=== PATIENT | female | born 1965 | race Caucasian/White ===

== ENCOUNTER 2017-01-10 14:05 | Emergency (ER) | payer OTHER ==
[2017-01-10 15:26] VITALS: BP 118/72
== END 2017-01-10 15:26 | disposition home or self-care (01) ==
LOC: ED 14:05
DX: N39.0 Urinary tract infection, site not specified (principal); F31.9 Bipolar disorder, unspecified; F20.9 Schizophrenia, unspecified; M19.90 Unspecified osteoarthritis, unspecified site
CPT/HCPCS: Q0162

== ENCOUNTER 2017-01-18 13:13 | Emergency (ER) | payer OTHER ==
[~2017-01-18] VITALS: Ht 152.4 cm; Wt 44.5 kg
[2017-01-18 15:10] VITALS: BP 136/86
== END 2017-01-18 15:43 | disposition home or self-care (01) ==
LOC: ED 13:13
DX: L03.113 Cellulitis of right upper limb (principal)
CPT/HCPCS: 90715

== ENCOUNTER 2017-05-01 15:29 | Inpatient (IN) | payer OTHER ==
[~2017-05-01] VITALS: Ht 142.2 cm; Wt 44.0 kg
[2017-05-01 15:37] VITALS: Ht 142.2 cm; Wt 44.0 kg
[2017-05-01 17:40] LABS: BASOPHIL % 0.5 % (0-2); PLATELET COUNT 326 x10^3mcL (130-400)
[2017-05-01 17:46] LABS: RED CELL DISTRIBUTION WIDTH 14.6 % (11.5-14.5)
[2017-05-01 18:03] LABS: CALCIUM 8.5 mg/dL (8.5-10.1); CARBON DIOXIDE 26.6 mmol/L (21-32); CHLORIDE SERUM 105 mmol/L (98-107); CREATININE SERUM 0.6 mg/dL (0.6-1.0); GFR1 > 60 mL/min; GLUCOSE SERUM 75 mg/dL (74-106); POTASSIUM SERUM 4.1 mmol/L (3.5-5.1); SODIUM SERUM 142 mmol/L (136-145)
[2017-05-01 18:12] LABS: ALBUMIN 3.8 g/dL (3.4-5.0); ALKALINE PHOSPHATASE 63 U/L (46-116); ALT/SGPT 26 U/L (14-59); AST/SGOT 41 U/L (15-37); BILIRUBIN TOTAL 0.4 mg/dL (0.20-1.00); FREE T4 1.21 ng/dL (0.76-1.46); TOTAL PROTEIN, SERUM 7.7 g/dL (6.4-8.2)
[2017-05-01] MEDS ORDERED: NORCO1 TA2 PO (19:13)
[2017-05-01 20:13] VITALS: BP 127/62
[2017-05-01 20:59] LABS: MAGNESIUM 2.1 mg/dL (1.8-2.4); PHOSPHOROUS 3.2 mg/dL (2.5-4.9)
[2017-05-01 21:06] LABS: CHOLESTEROL/HDL RATIO 2.3
[2017-05-01] MEDS ORDERED: GEODON80 MG PO (22:12)
[2017-05-01] MEDS ORDERED: LAM100 PO (22:13)
[2017-05-02 05:36] VITALS: BP 112/59
[2017-05-02 06:52] LABS: CALCIUM 8.7 mg/dL (8.5-10.1); CARBON DIOXIDE 28.2 mmol/L (21-32); CHLORIDE SERUM 109 mmol/L (98-107); CREATININE SERUM 0.5 mg/dL (0.6-1.0); GFR1 > 60 mL/min; GLUCOSE SERUM 68 mg/dL (74-106); PHOSPHOROUS 2.9 mg/dL (2.5-4.9); POTASSIUM SERUM 4.2 mmol/L (3.5-5.1); SODIUM SERUM 144 mmol/L (136-145)
[2017-05-02 06:55] LABS: BASOPHIL % 0.7 % (0-2); PLATELET COUNT 311 x10^3mcL (130-400)
[2017-05-02 06:57] LABS: RED CELL DISTRIBUTION WIDTH 14.6 % (11.5-14.5)
[2017-05-02 09:36] VITALS: BP 144/75
[2017-05-02 12:32] LABS: UA SPECIFIC GRAVITY 1.015 (1.005-1.035); microscopic required? YES; urine erythrocyte TRACE (NEGATIVE)
[2017-05-02] MEDS ORDERED: LAC PO (13:34)
[2017-05-02] MEDS ORDERED: KEFLEX500 M1 PO (13:34)
== END 2017-05-02 15:00 | disposition home or self-care (01) | DRG 48 ==
LOC: ED 15:29 → DU 18:40
PROVIDERS: Emergency Medicine; Family Medicine
DX: G90.8 Other disorders of autonomic nervous system (principal); F50.2 Bulimia nervosa; F41.9 Anxiety disorder, unspecified; F20.9 Schizophrenia, unspecified; F32.9 Major depressive disorder, single episode, unspecified; F31.9 Bipolar disorder, unspecified; M19.90 Unspecified osteoarthritis, unspecified site
CPT/HCPCS: 83880; 84439; J2270; J7030; Q0092

== ENCOUNTER 2018-02-12 17:05 | Emergency (ER) | payer OTHER ==
[~2018-02-12] VITALS: Ht 142.2 cm; Wt 46.7 kg
[~2018-02-12 17:05] MED LIST: GEODON80 MG PO; KEFLEX500 M1 PO; LAC PO; LAM100 PO; NORCO1 TA2 PO
[2018-02-12 17:08] VITALS: Ht 142.2 cm; Wt 46.7 kg
[2018-02-12 18:56] VITALS: BP 141/84
== END 2018-02-12 18:56 | disposition home or self-care (01) ==
LOC: ED 17:05
DX: I80.3 Phlebitis and thrombophlebitis of lower extremities, unspecified (principal); F31.9 Bipolar disorder, unspecified; F20.9 Schizophrenia, unspecified; M19.90 Unspecified osteoarthritis, unspecified site

== ENCOUNTER 2019-01-03 12:04 | Emergency (ER) | payer OTHER ==
[~2019-01-03] VITALS: Ht 142.2 cm; Wt 49.0 kg
[2019-01-03 12:37] VITALS: Ht 142.2 cm; Wt 49.0 kg
[2019-01-03 14:12] VITALS: BP 131/70
== END 2019-01-03 14:12 | disposition home or self-care (01) ==
LOC: ED 12:04
DX: M54.5 Low back pain (principal); F20.9 Schizophrenia, unspecified; F31.9 Bipolar disorder, unspecified; Z98.890 Other specified postprocedural states
CPT/HCPCS: J1885

== ENCOUNTER 2020-01-27 12:53 | Inpatient (IN) | payer OTHER ==
[~2020-01-27] VITALS: Ht 144.8 cm; Wt 49.0 kg
[2020-01-27 16:57] LABS: BASOPHIL % 0.5 % (0-2); PLATELET COUNT 395 x10^3mcL (130-400); RED CELL DISTRIBUTION WIDTH 13.8 % (11.5-14.5)
[2020-01-27 17:25] LABS: CALCIUM 9.6 mg/dL (8.5-10.1); CARBON DIOXIDE 28.7 mmol/L (21-32); CHLORIDE SERUM 86 mmol/L (98-107); CREATININE SERUM 0.8 mg/dL (0.6-1.0); GFR1 > 60 mL/min; GLUCOSE SERUM 96 mg/dL (74-106); POTASSIUM SERUM 3.7 mmol/L (3.5-5.1); SODIUM SERUM 125 mmol/L (136-145)
[2020-01-27 17:29] LABS: ALBUMIN 4.8 g/dL (3.4-5.0); ALKALINE PHOSPHATASE 77 U/L (46-116); ALT/SGPT 19 U/L (14-59); AMYLASE 100 U/L (25-115); AST/SGOT 32 U/L (15-37); BILIRUBIN TOTAL 0.8 mg/dL (0.20-1.00); LIPASE 89 IU/L (73-393)
[2020-01-27 17:43] LABS: UA SPECIFIC GRAVITY 1.025 (1.005-1.035); microscopic required? YES; urine erythrocyte TRACE (NEGATIVE)
[2020-01-27 21:25] LABS: CALCIUM 8.9 mg/dL (8.5-10.1); CHLORIDE SERUM 90 mmol/L (98-107); CREATININE SERUM 0.6 mg/dL (0.6-1.0); GFR1 > 60 mL/min; GLUCOSE SERUM 88 mg/dL (74-106); SODIUM SERUM 128 mmol/L (136-145)
[2020-01-27 21:32] LABS: ALBUMIN 4.1 g/dL (3.4-5.0); ALKALINE PHOSPHATASE 68 U/L (46-116); ALT/SGPT 23 U/L (14-59); AST/SGOT 31 U/L (15-37); BILIRUBIN TOTAL 0.86 mg/dL (0.20-1.00); TOTAL PROTEIN, SERUM 8.2 g/dL (6.4-8.2)
[2020-01-27 21:50] LABS: UREA NITROGEN URINE (RANDOM) 738 mg/dL (350-1000)
[2020-01-27 23:25] VITALS: BP 126/65
[2020-01-28 05:07] VITALS: BP 118/77
[2020-01-28 08:59] VITALS: BP 119/65
[2020-01-28 12:04] VITALS: BP 112/53
[2020-01-28] MEDS ORDERED: ZESTRIL10 MG PO (12:50)
[2020-01-28] MEDS ORDERED: ZOF4 SL (12:51)
[2020-01-28 13:06] VITALS: BP 112/53
== END 2020-01-28 14:14 | disposition home or self-care (01) | DRG 426 ==
LOC: ED 12:53 → DU 20:36 → MU 20:36 → DU 23:09
PROVIDERS: Emergency Medicine; Student in an Organized Health Care Education/Training Program; ADMIT Hospitalist; ATTEND Internal Medicine Pulmonary Disease
DX: E87.1 Hypo-osmolality and hyponatremia (principal); F20.9 Schizophrenia, unspecified; F31.9 Bipolar disorder, unspecified; I10 Essential (primary) hypertension; Z20.828 Contact with and (suspected) exposure to other viral communicable diseases
CPT/HCPCS: G0378; J1885; J7030; Q9967; U0003